=== PATIENT | male | born 1945 | race Caucasian/White ===

== ENCOUNTER 2016-12-31 17:18 | Emergency (ER) | payer MEDICARE, OTHER ==
[~2016-12-31] VITALS: Ht 177.8 cm; Wt 88.5 kg
[~2016-12-31 17:18] MED LIST: DIVA500T2 PO; HALO0.5T4 PO; LEVOSTATIN PO
[2016-12-31 17:27] VITALS: BP 156/74
[2016-12-31] MEDS ORDERED: WATER FOR INJECTION,STERILE 10 ML ONE (19:17)
[2016-12-31] MEDS ORDERED: CEFAZOLIN 1 GM ONE (19:17)
[2016-12-31] MEDS ORDERED: CEFAZOLIN 1 GM VIAL IM ONE (19:30)
== END 2016-12-31 19:50 | disposition home or self-care (01) ==
LOC: ER 17:19
DX: S62.630B Displaced fracture of distal phalanx of right index finger, initial encounter for open fracture (principal); S62.632B Displaced fracture of distal phalanx of right middle finger, initial encounter for open fracture; S62.634B Displaced fracture of distal phalanx of right ring finger, initial encounter for open fracture; S61.210A Laceration without foreign body of right index finger without damage to nail, initial encounter; S61.212A Laceration without foreign body of right middle finger without damage to nail, initial encounter; F31.9 Bipolar disorder, unspecified; Z90.89 Acquired absence of other organs; W27.8XXA Contact with other nonpowered hand tool, initial encounter; Y93.89 Activity, other specified; Y92.89 Other specified places as the place of occurrence of the external cause; Y99.9 Unspecified external cause status
CPT/HCPCS: 73130-TC; A6402; J0690

== ENCOUNTER 2017-01-24 03:54 | Emergency (ER) | payer MEDICARE, OTHER ==
[~2017-01-24] VITALS: Ht 172.7 cm; Wt 79.4 kg
[2017-01-24 03:54] VITALS: BP 132/80
[2017-01-24] MEDS ORDERED: NEOM/POLY B SULF/HC OTIC SUSP 10 ML BOTTLE ONE (04:20)
[2017-01-24] MEDS ORDERED: LIDOCAINE /MPF 1% VIAL 5 ML VIAL ONE (04:26)
[2017-01-24] MEDS ORDERED: CIPROFLOXACIN HCL 250 MG TABLET PO ONE (04:30)
[2017-01-24] MEDS ORDERED: NEOM/POLY B SULF/HC OTIC SUSP 10 ML BOTTLE OT ONE (04:30)
[2017-01-24] MEDS ORDERED: LIDOCAINE 1% INJ 50 ML MDV IJ ONE (04:30)
[2017-01-24] MEDS ORDERED: CIPROFLOXACIN HCL 500 MG TABLET ONE (04:49)
== END 2017-01-24 04:59 | disposition home or self-care (01) ==
LOC: ER 03:57
DX: H60.92 Unspecified otitis externa, left ear (principal); F31.9 Bipolar disorder, unspecified; R79.89 Other specified abnormal findings of blood chemistry
CPT/HCPCS: 82962-TC; A4606; J3490; Z7610

== ENCOUNTER 2017-10-30 10:14 | Emergency (ER) | payer MEDICARE, MEDICAID ==
[~2017-10-30] VITALS: Ht 170.2 cm; Wt 88.5 kg
[2017-10-30 10:17] VITALS: BP 141/86
[2017-10-30] MEDS ORDERED: TDAP [DIPH/PERTUSSIS/TET] 0.5 ML VIAL IM ONE ×2 (10:30→10:31)
== END 2017-10-30 11:41 | disposition home or self-care (01) ==
LOC: ER 10:17
DX: S61.214A Laceration without foreign body of right ring finger without damage to nail, initial encounter (principal); F31.9 Bipolar disorder, unspecified; Z90.89 Acquired absence of other organs; W45.8XXA Other foreign body or object entering through skin, initial encounter; Y93.89 Activity, other specified; Y92.89 Other specified places as the place of occurrence of the external cause; Y99.8 Other external cause status
CPT/HCPCS: 73130-TC; 90715; A4606; A6403; Z7610

== ENCOUNTER 2018-02-05 06:11 | Emergency (ER) | payer MEDICARE, MEDICAID ==
[~2018-02-05] VITALS: Ht 167.6 cm; Wt 89.4 kg
--- NOTE | 2018-02-05 06:11 | NUR ---
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 PRESSURE 03/30. VSS NAD A/OX4. WILL CONTINUE TO MONITOR FOR ANY CHANGES DURING THE SHIFT.
--- NOTE | 2018-02-05 06:32 | NUR ---
ER MD NAVA AT BEDSIDE FOR EVAL
[2018-02-05] MEDS ORDERED: ACETAMINOPHEN ES 500 MG TABLET ONE (06:39)
[2018-02-05] MEDS ORDERED: ACETAMINOPHEN 325 MG TABLET PO ONE (07:00)
--- NOTE | 2018-02-05 07:05 | NUR ---
Received report from REJI Cortes for [facility]. Assumed care at this point in time. Patient is AAOX3. Neuro intact. Bilateral superintendent transmission are strong and equal. No focal deficit noted. Speech is clear and coherent. Face symmetrical.
--- NOTE | 2018-02-05 07:39 | NUR ---
Per Dr Tobias, patient is stable to go home and CT result is ok. Patient discharged to home in stable condition. Written and verbal after care instructions given. Patient verbalizes understanding of instruction.
[2018-02-05 07:43] VITALS: BP 139/84
== END 2018-02-05 07:44 | disposition home or self-care (01) ==
LOC: ER 06:17
DX: S06.0X0A Concussion without loss of consciousness, initial encounter (principal); G51.0 Bell's palsy; F10.10 Alcohol abuse, uncomplicated; F31.9 Bipolar disorder, unspecified; Z90.89 Acquired absence of other organs; W18.39XA Other fall on same level, initial encounter; Y93.89 Activity, other specified; Y92.89 Other specified places as the place of occurrence of the external cause; Y99.8 Other external cause status
CPT/HCPCS: 70450-TC; A4606; Z7610

== ENCOUNTER 2018-06-04 17:06 | Inpatient (IN) | payer MEDICAID, MEDICARE ==
[~2018-06-04] VITALS: Ht 167.6 cm; Wt 86.2 kg
[2018-06-04] MEDS ORDERED: VANCOMYCIN 1 GM in IV D5W 250 ML IV ONE (18:00)
--- NOTE | 2018-06-04 18:00 | NUR ---
PT CAME IN WITH C/O LEFT LEG SWELLING, REDNESS. SEEN BY PA FOR EVAL. VSS. SAFETY AND COMFORT MEASURES PROVIDED. WILL MONITOR.
[2018-06-04 18:18] LABS: BASOPHILS # (AUTO) 0.4 /CMM (0.0-0.2); EOSINOPHILS % (AUTO) 0.5 % (0.0-6.0); HEMATOCRIT 43 % (39-51); HEMOGLOBIN 14.5 g/dL (13.5-17.5); LYMPHOCYTES # (AUTO) 1.8 /CMM (0.8-4.8); LYMPHOCYTES % (AUTO) 13.8 % (20.0-44.0); MEAN CORPUSCULAR HEMOGLOBIN 31 PG (26.0-33.0); MEAN CORPUSCULAR HGB CONC 34 g/dl (31.0-36.0); MEAN CORPUSCULAR VOLUME 91 fL (80-96); MONOCYTES # (AUTO) 1.7 /CMM (0.1-1.30); NEUTROPHILS # (AUTO) 8.9 /CMM (1.8-8.9); NEUTROPHILS % (AUTO) 69.7 % (43.0-81.0); PLATELET COUNT (AUTO) 121 /CMM (150-450); RDW COEFFICIENT OF VARIATION 12.8 (11.5-15.0); RED BLOOD CELL COUNT(AUTO) 4.75 MIL/uL (4.5-6.0); WHITE BLOOD COUNT (AUTO) 12.9 K/uL (4.3-11.0)
[2018-06-04 18:27] LABS: CALCIUM, SERUM 9.8 mg/dL (8.5-10.1); CARBON DIOXIDE 30 mmol/L (21-32); CHLORIDE 101 mmol/L (98-107); CREATININE 1.1 mg/dL (0.6-1.3); GLUCOSE 168 mg/dL (74-106); POTASSIUM 4.4 mmol/L (3.5-5.1); SODIUM SERUM 138 mmol/L (136-145); UREA NITROGEN, BLOOD 31 mg/dL (7-18)
[2018-06-04] MEDS ORDERED: IV NS 0.9% 1,000 ML IV PRN (19:42)
[2018-06-04] MEDS ORDERED: HYDROCODONE/APAP 5/325MG 1 EACH TABLET PO PRN (20:00)
[2018-06-04] MEDS ORDERED: HYDROCODONE/APAP 10/325MG 1 EA TABLET PO PRN (20:00)
[2018-06-04] MEDS ORDERED: Z GUARD REMEDY 2 OZ OINT TP PRN (20:00)
[2018-06-04] MEDS ORDERED: ONDANSETRON HCL/PF 4 MG/2 ML VIAL IVP PRN (20:00)
[2018-06-04] MEDS ORDERED: ACETAMINOPHEN 325 MG TABLET PO PRN (20:00)
[2018-06-04] MEDS ORDERED: MAG HYDROX/AL HYDROX/SIMETH 30 ML UDC PO PRN (20:00)
[2018-06-04] MEDS ORDERED: MAGNESIUM HYDROXIDE 30 ML UDC PO PRN (20:00)
--- NOTE | 2018-06-04 20:20 | NUR ---
REPORT GIVEN TO HILARIO/RN ON BEHALF OF PRIMARY NURSE LYUBOV. TP BE TRANSPORTED TO THE FLOOR. NO S/S OF DISTRESS NOTED AT THIS TIME. RESP EVEN AND UNLABORED.
[2018-06-04 20:35] VITALS: BP 136/74
[2018-06-04] MEDS ORDERED: FEE PK DOSING 1 MIN EA MC ONE (20:56)
[2018-06-04] MEDS: HALOPERIDOL 1 MG TABLET PO SCH ×2 (21:00→21:35)
[2018-06-04] MEDS ORDERED: DIVALPROEX SODIUM 500 MG TABLET.DR PO SCH (21:00)
--- NOTE | 2018-06-04 21:00 | NUR ---
MS RN NOTES PT RECEIVE FROM [facility] ADMIT TO M/S, PT A/OX 4, RESPIRATIONS EVEN AND UNLABORED, NO COMPLAIN OF PAIN. HEAD TO TOE ASSESSMENT IS DONE, NOT IN DISTRESS, OFFLOAD HEELS, KEPT CLEAN AND DRY AND COMFORTABLE. SAFETY MEASURES IN PLACE. WILL CONTINUE TO MONITOR
--- NOTE | 2018-06-04 21:36 | NUR ---
MS MENDOZA UPON ADMINISTERING OF DEPAKOTE MEDICATION PT STATED HE IS TAKING DEPAKOTE 1000 MG QD. WASTE MEDICATION AND WILL CLARIFY HOSPITALIST Addendum: 06/04/18 at 2322 by HILARIO ANGELES RN MEDICATION NOT CUT, CLARIFIED OUTSIDE PHARMACIST ACTIVE DEPAKOTE MEDICATION. NON ADMNISTRATION
--- NOTE | 2018-06-04 21:38 | NUR ---
MS RN NOTES PT REFUSED HALDOL PO UPON GIVING HIM MEDICATION DUE AT 2100 DESPITE EXPLAINING RISKS AND BENEFITS OFFERED 3 TIMES STILL REFUSED. PT A./OX4. HOSPITALIST MADE AWARE
--- NOTE | 2018-06-04 22:23 | NUR ---
MARITZA NUGENT CLARIFIED ORDERS OF DEPAKOTE PER PT HE IS TAKING DEPAKOTE 1000 MG PO QD PER RAFFI OK TO GIVE DEPAKOTE 1000 MG PO QD READ BACK AND VERIFIED ORDERS NOTED AND CARRIED OUT. Addendum: 06/04/18 at 2225 by HILARIO ANGELES RN PER RAFFI D/Marcelo PREVIOUS ORDER OF DEPAKOTE 100 MG NOTED AND CARRIED OUT
[2018-06-04] MEDS ORDERED: DIVALPROEX SODIUM 500 MG TABLET.DR PO ONE (23:00)
[2018-06-05] MEDS ORDERED: VANCOMYCIN 1 GM in IV D5W 250 ML IV SCH (06:00)
--- NOTE | 2018-06-05 06:11 | NUR ---
MS RN CLOSING NOTES PT COMFORTABLY ASLEEP AND EASILY AWAKEN, STABLE, NOT IN DISTRESS. TOLERATING ROOM AIR 99% OFFLOAD HEELS, GOOD SKIN CARE PROVIDED. RESPIRATION EVEN AND UNLABORED. KEPT CLEAN AND DRY AND COMFORTABLE, ALL NURSING CARE RENDERED. NEEDS ATTENDED AND ANTICIPATED. NO COMPLAIN OF PAIN AT THIS TIME. ON LOW BED AT ALL TIMES TO ENSURE SAFETY. SAFE HAZARD FREE ENVIRONMENT PROVIDED. CALL LIGHT WITHIN EASY TO REACH. WILL ENDORSE NEXT SHIFT CONTINUITY OF CARE.
[2018-06-05 06:38] LABS: CALCIUM, SERUM 8.8 mg/dL (8.5-10.1); CARBON DIOXIDE 30 mmol/L (21-32); CHLORIDE 103 mmol/L (98-107); CREATININE 0.9 mg/dL (0.6-1.3); GLUCOSE 118 mg/dL (74-106); MAGNESIUM 1.8 mg/dL (1.8-2.4); PHOSPHORUS 3.9 mg/dL (2.5-4.9); POTASSIUM 4.1 mmol/L (3.5-5.1); SODIUM SERUM 140 mmol/L (136-145); UREA NITROGEN, BLOOD 22 mg/dL (7-18)
[2018-06-05 06:49] LABS: CHOLESTEROL 161 mg/dL (<200); HDL CHOLESTEROL 43 mg/dL (40-60); LDL 100 mg/dL (0-99); THYROID STIMULATING HORMONE 8.518 uIU/mL (0.358-3.74); TRIGLYCERIDES 144 mg/dL (30-150)
[2018-06-05 06:53] LABS: IRON, SERUM 44 ug/dl (50-175); TOTAL IRON BINDING CAPACITY 220 ug/dl (250-450)
[2018-06-05] MEDS ORDERED: PANTOPRAZOLE 40 MG TABLET.DR PO SCH (07:30)
--- NOTE | 2018-06-05 07:30 | NUR ---
MS RN OPENING NOTES RECEIVED PATIENT IN STABLE CONDITION. IN NO APPARENT DISTRESS. BEDSIDE RAILS ARE UPX2. BED IS LOCKED AND LOWERED. CALL LIGHT IS WITHIN REACH. IV LINE IS INTACT AND PATENT. WILL CONTINUE TO MONITOR PATIENT.
[2018-06-05 08:00] VITALS: BP 108/66
[2018-06-05 08:24] LABS: BASOPHILS % (AUTO) 0.2 % (0.0-2.0); EOSINOPHILS % (AUTO) 1.4 % (0.0-6.0); HEMATOCRIT 42 % (39-51); HEMOGLOBIN 13.7 g/dL (13.5-17.5); LYMPHOCYTES % (AUTO) 19.9 % (20.0-44.0); MEAN CORPUSCULAR HEMOGLOBIN 31 PG (26.0-33.0); MEAN CORPUSCULAR HGB CONC 33 g/dl (31.0-36.0); MEAN CORPUSCULAR VOLUME 94 fL (80-96); MONOCYTES # (AUTO) 1.3 /CMM (0.1-1.30); MONOCYTES % (AUTO) 12.8 % (2.0-12.0); NEUTROPHILS # (AUTO) 6.5 /CMM (1.8-8.9); NEUTROPHILS % (AUTO) 65.7 % (43.0-81.0); PLATELET COUNT (AUTO) 145 /CMM (150-450); RDW COEFFICIENT OF VARIATION 13.7 (11.5-15.0); RED BLOOD CELL COUNT(AUTO) 4.46 MIL/uL (4.5-6.0); WHITE BLOOD COUNT (AUTO) 9.9 K/uL (4.3-11.0)
[2018-06-05] MEDS: HALOPERIDOL 1 MG TABLET PO SCH (08:24)
[2018-06-05] MEDS ORDERED: LEVOSTATIN PO SCH (09:00)
--- NOTE | 2018-06-05 13:52 | NUR ---
PATIENT LEFT AMA. PATIENT SIGNED AMA FORM. IV LINE WAS REMOVED. EXPLAINED TO PATIENT RISKS AND BENEFITS OF LEAVING AMA. PATIENT CONTINUES TO INSIST ON LEAVING. OFFERED PATIENT TO SPEAK TO A COPPER RO[employer] HANDLER PRINTING. COPPER ROLLER HANDLER PRINTING CAME TO TALK TO THE PATIENT. PATIENT REFUSED TO RECEIVE PAPERWORK. CALLED PATIENTS FRIEND DANIE PATEL: [phone]. FRIEND WILL COME BUSINESS OBJECTS ARCHITECT PATIENT. PATIENT ESCORTED OUT OF THE FACILITY VIA WHEELCHAIR BY PIPO. Addendum: 06/05/18 at 1453 by JESICA PAYNE RN ID BAND WAS REMOVED
[2018-06-05] MEDS ORDERED: SIMVASTATIN 10 MG TABLET PO SCH (22:00)
[2018-06-05] MEDS ORDERED: DIVALPROEX SODIUM 500 MG TABLET.DR PO SCH (22:00)
== END 2018-06-05 13:52 | disposition left against medical advice (07) | DRG 571 ==
LOC: ER 17:14 → MEDSG2 20:23
PROVIDERS: ADMIT Registered Nurse; ATTEND Registered Nurse
PROC: 0JBR0ZZ Excision of Left Foot Subcutaneous Tissue and Fascia, Open Approach (ICD-10-PCS; principal; 2018-06-05)
DX: L03.116 Cellulitis of left lower limb (principal); K57.92 Diverticulitis of intestine, part unspecified, without perforation or abscess without bleeding; F31.9 Bipolar disorder, unspecified; Z98.890 Other specified postprocedural states; Z79.899 Other long term (current) drug therapy; J44.9 Chronic obstructive pulmonary disease, unspecified; M62.838 Other muscle spasm; D72.829 Elevated white blood cell count, unspecified; D69.6 Thrombocytopenia, unspecified; E86.0 Dehydration; E11.65 Type 2 diabetes mellitus with hyperglycemia; E66.9 Obesity, unspecified; F41.9 Anxiety disorder, unspecified; Z68.30 Body mass index [BMI] 30.0-30.9, adult; T31.0 Burns involving less than 10% of body surface; B96.89 Other specified bacterial agents as the cause of diseases classified elsewhere; T24.232D Burn of second degree of left lower leg, subsequent encounter; T25.212D Burn of second degree of left ankle, subsequent encounter
CPT/HCPCS: 36415; 80048-TC; 80061-TC; 83540-TC; 83735-TC; 84100-TC; 84443-TC; 85025-TC; 87070-TC; 87081-TC; 93971-TC; A4606; A6402; A6403; J3370; J7030; J7060; Z7610

== ENCOUNTER 2018-06-07 18:47 | Emergency (ER) | payer MEDICARE, OTHER ==
--- NOTE | 2018-06-07 19:38 | NUR ---
pt called for triage. per ER admin, pt left. pt lwbs.
== END 2018-06-07 19:39 | disposition left against medical advice (07) ==
LOC: ER 18:52
DX: Z53.21 Procedure and treatment not carried out due to patient leaving prior to being seen by health care provider (principal)

== ENCOUNTER 2018-06-07 23:53 | Emergency (ER) | payer MEDICARE, MEDICAID ==
[~2018-06-07] VITALS: Ht 167.6 cm; Wt 89.4 kg
[2018-06-08 00:02] VITALS: BP 148/81
== END 2018-06-08 00:51 | disposition home or self-care (01) ==
LOC: ER 23:55
DX: T24.6 Corrosion of second degree of lower limb, except ankle and foot (principal); E11.9 Type 2 diabetes mellitus without complications; F31.9 Bipolar disorder, unspecified; F10.10 Alcohol abuse, uncomplicated; M62.838 Other muscle spasm; Y90.9 Presence of alcohol in blood, level not specified; Z90.89 Acquired absence of other organs
CPT/HCPCS: A4606; Z7502; Z7610

== ENCOUNTER 2018-06-16 03:12 | Emergency (ER) | payer MEDICARE, MEDICAID ==
--- NOTE | 2018-06-16 03:22 | NUR ---
PT NOT IN LOBBY WHEN CALLED FOR TRIAGE
--- NOTE | 2018-06-16 03:32 | NUR ---
CALLED AGAIN. INFORMED "PT LEFT"
== END 2018-06-16 03:33 | disposition left against medical advice (07) ==
LOC: ER 03:12
DX: Z53.21 Procedure and treatment not carried out due to patient leaving prior to being seen by health care provider (principal)

== ENCOUNTER 2019-05-04 20:47 | Emergency (ER) | payer MEDICARE, MEDICAID ==
[~2019-05-04] VITALS: Ht 170.2 cm; Wt 83.9 kg
[~2019-05-04 20:47] MED LIST changes: +HALO0.5T2 PO; -HALO0.5T4 PO
[2019-05-04 21:26] VITALS: BP 139/88
--- NOTE | 2019-05-04 22:18 | NUR ---
Patient discharged to home in stable condition. Written and verbal after care instructions given. Patient verbalizes understanding of instruction. Pt ambulatory with a steady gait
== END 2019-05-04 22:20 | disposition home or self-care (01) ==
LOC: ER 20:55
DX: H60.92 Unspecified otitis externa, left ear (principal); F31.9 Bipolar disorder, unspecified; G51.0 Bell's palsy; Z90.89 Acquired absence of other organs; Z79.899 Other long term (current) drug therapy

== ENCOUNTER 2022-03-30 03:38 | Emergency (ER) | payer MEDICAID, MEDICARE ==
[~2022-03-30] VITALS: Ht 170.2 cm; Wt 85.3 kg
[2022-03-30 03:47] VITALS: BP 140/60
--- NOTE | 2022-03-30 03:53 | NUR ---
Patient discharged to home in stable condition. Written and verbal after care instructions given. Patient verbalizes understanding of instruction.
== END 2022-03-30 04:29 | disposition home or self-care (01) ==
LOC: ER 03:43
DX: R21 Rash and other nonspecific skin eruption (principal); F31.9 Bipolar disorder, unspecified; Z87.19 Personal history of other diseases of the digestive system; Z90.89 Acquired absence of other organs

== ENCOUNTER 2024-07-14 11:46 | Emergency (ER) | payer MEDICARE ==
[~2024-07-14] VITALS: Ht 170.2 cm; Wt 83.0 kg
[2024-07-14] MEDS ORDERED: TDAP [DIPH/PERTUSSIS/TET] 0.5 ML VIAL IM ONE (13:01)
[2024-07-14] MEDS: TDAP [DIPH/PERTUSSIS/TET] 0.5 ML VIAL IM ONE (13:06)
[2024-07-14 14:20] VITALS: BP 145/80; TEMP 97.7; O2SAT 98
== END 2024-07-14 14:21 | disposition home or self-care (01) ==
LOC: ER 11:50
DX: S01.81XA Laceration without foreign body of other part of head, initial encounter (principal); F31.9 Bipolar disorder, unspecified; Z86.69 Personal history of other diseases of the nervous system and sense organs; Z87.39 Personal history of other diseases of the musculoskeletal system and connective tissue; Z90.49 Acquired absence of other specified parts of digestive tract; W01.0XXA Fall on same level from slipping, tripping and stumbling without subsequent striking against object, initial encounter; Y93.89 Activity, other specified; Y92.89 Other specified places as the place of occurrence of the external cause; Y99.8 Other external cause status
CPT/HCPCS: 70450-TC; 70486-TC; 72125-TC; 90715

== ENCOUNTER 2024-09-03 09:45 | Emergency (ER) | payer MEDICARE ==
[~2024-09-03] VITALS: Ht 182.9 cm; Wt 75.3 kg
[2024-09-03] MEDS ORDERED: KETOROLAC TROMETHAMINE 15 MG/ML VIAL ONE (10:15)
[2024-09-03] MEDS: IV NS 0.9% 1,000 ML BAG IV ONE (10:24)
[2024-09-03] MEDS: KETOROLAC TROMETHAMINE 15 MG/ML VIAL IV ONE (10:25)
[2024-09-03] MEDS ORDERED: METOCLOPRAMIDE HCL 10 MG/2 ML VIAL ONE (10:29)
[2024-09-03 10:32] LABS: BASOPHILS # (AUTO) 0.1 K/uL (0.0-0.2); BASOPHILS % (AUTO) 0.7 % (0.0-2.0); EOSINOPHILS # (AUTO) 0.2 K/uL (0.0-0.7); EOSINOPHILS % (AUTO) 2.2 % (0.0-6.0); HEMATOCRIT 41 % (39-51); HEMOGLOBIN 13.9 g/dL (13.5-17.5); LYMPHOCYTES # (AUTO) 1.3 K/uL (0.8-4.8); LYMPHOCYTES % (AUTO) 14.7 % (20.0-44.0); MEAN CORPUSCULAR HEMOGLOBIN 30 PG (26.0-33.0); MEAN CORPUSCULAR HGB CONC 34 g/dl (31.0-36.0); MEAN CORPUSCULAR VOLUME 88 fL (80-96); MONOCYTES % (AUTO) 22.4 % (2.0-12.0); NEUTROPHILS # (AUTO) 5.3 K/uL (1.8-8.9); PLATELET COUNT (AUTO) 154 K/uL (150-450); RED BLOOD CELL COUNT(AUTO) 4.64 MIL/uL (4.5-6.0); WHITE BLOOD COUNT (AUTO) 8.8 K/uL (4.3-11.0)
[2024-09-03] MEDS: METOCLOPRAMIDE HCL 10 MG/2 ML VIAL IV ONE (10:32)
[2024-09-03 10:51] LABS: VALPROIC ACID < 3 ug/mL (50-100)
[2024-09-03 10:54] LABS: CALCIUM, SERUM 9.5 mg/dL (8.5-10.1); CARBON DIOXIDE 31 mmol/L (21-32); CHLORIDE 96 mmol/L (98-107); CREATININE 1.1 mg/dL (0.6-1.3); GLUCOSE 208 mg/dL (74-106); POTASSIUM 4.2 mmol/L (3.5-5.1); SODIUM SERUM 134 mmol/L (136-145); UREA NITROGEN, BLOOD 22 mg/dL (7-18)
[2024-09-03 11:04] LABS: BAND % (MANUAL) 1 % (0.0-5.0); NEUTROPHILS % (MANUAL) 57 (42-76)
[2024-09-03 11:05] LABS: EOSINOPHILS % (MANUAL) 1 % (0-4); LYMPHOCYTES % (MANUAL) 15 % (16-48); METAMYELOCYTES % 1 % (0-0); MONOCYTES % (MANUAL) 20 % (0-11.0); MYELOCYTES % 1 % (0-0); PLATELET ESTIMATE ADEQUATE; REACTIVE LYMPHOCYTES 4 % (0-0)
[2024-09-03] MEDS ORDERED: MORPHINE SULFATE INJ 2 MG/ML DISP.SYRIN ONE (11:33)
[2024-09-03] MEDS: MORPHINE SULFATE INJ 2 MG/ML DISP.SYRIN IV ONE (11:36)
[2024-09-03] MEDS ORDERED: DIVA500T2 PO (11:42)
[2024-09-03] MEDS ORDERED: DIVALPROEX SODIUM 500 MG TABLET.DR PO ONE (12:46)
[2024-09-03] MEDS ORDERED: VALPROIC ACID 250 MG/5 ML UDC ONE (12:47)
[2024-09-03] MEDS: VALPROIC ACID 250 MG/5 ML UDC PO ONE (12:47)
[2024-09-03 12:52] VITALS: BP 124/72; TEMP 98; O2SAT 98
== END 2024-09-03 12:53 | disposition home or self-care (01) ==
LOC: ER 09:45
DX: R51.9 Headache, unspecified (principal); F31.9 Bipolar disorder, unspecified; Z90.49 Acquired absence of other specified parts of digestive tract; Z86.69 Personal history of other diseases of the nervous system and sense organs; Z87.19 Personal history of other diseases of the digestive system; Z87.39 Personal history of other diseases of the musculoskeletal system and connective tissue
CPT/HCPCS: 99285; 96374; 96375; 96361; 85025; 80048; 36415; 80164; 85007; J2765; J7030 ×2; J2270; J1885

== ENCOUNTER 2024-09-24 10:49 | Emergency (ER) | payer MEDICARE ==
[~2024-09-24] VITALS: Ht 170.2 cm; Wt 83.9 kg
[2024-09-24] MEDS ORDERED: DIVA-78 PO (11:16)
[2024-09-24] MEDS ORDERED: ACETAMINOPHEN ES 500 MG TABLET ONE (11:25)
[2024-09-24] MEDS: ACETAMINOPHEN ES 500 MG TABLET PO ONE (11:27)
[2024-09-24 11:29] VITALS: BP 128/72; TEMP 98; O2SAT 99
== END 2024-09-24 11:34 | disposition home or self-care (01) ==
LOC: ER 10:49
DX: R51.9 Headache, unspecified (principal); F31.9 Bipolar disorder, unspecified; Z76.0 Encounter for issue of repeat prescription; Z79.899 Other long term (current) drug therapy; Z90.49 Acquired absence of other specified parts of digestive tract; Z86.69 Personal history of other diseases of the nervous system and sense organs; Z87.19 Personal history of other diseases of the digestive system; Z87.39 Personal history of other diseases of the musculoskeletal system and connective tissue

== ENCOUNTER 2024-12-08 09:05 | Emergency (ER) | payer MEDICARE ==
[~2024-12-08] VITALS: Ht 170.2 cm; Wt 78.9 kg
[~2024-12-08 09:05] MED LIST changes: +DIVA-78 PO
[2024-12-08] MEDS: IV NS 0.9% 1,000 ML BAG IV ONE (09:40)
[2024-12-08 10:13] LABS: BASOPHILS # (AUTO) 0.1 K/uL (0.0-0.2); BASOPHILS % (AUTO) 0.7 % (0.0-2.0); EOSINOPHILS # (AUTO) 0.1 K/uL (0.0-0.7); EOSINOPHILS % (AUTO) 0.5 % (0.0-6.0); HEMATOCRIT 42 % (39-51); HEMOGLOBIN 14.2 g/dL (13.5-17.5); LYMPHOCYTES # (AUTO) 1.4 K/uL (0.8-4.8); LYMPHOCYTES % (AUTO) 10.1 % (20.0-44.0); MEAN CORPUSCULAR HEMOGLOBIN 29 PG (26.0-33.0); MEAN CORPUSCULAR HGB CONC 34 g/dl (31.0-36.0); MEAN CORPUSCULAR VOLUME 88 fL (80-96); MONOCYTES # (AUTO) 1.5 K/uL (0.1-1.30); MONOCYTES % (AUTO) 11.4 % (2.0-12.0); NEUTROPHILS # (AUTO) 10.5 K/uL (1.8-8.9); NEUTROPHILS % (AUTO) 77.3 % (43.0-81.0); PLATELET COUNT (AUTO) 234 K/uL (150-450); RED BLOOD CELL COUNT(AUTO) 4.83 MIL/uL (4.5-6.0); RED CELL DISTRIBUTION WIDTH 14.1 % (11.5-15.0); WHITE BLOOD COUNT (AUTO) 13.6 K/uL (4.3-11.0)
[2024-12-08 10:14] LABS: CARBON DIOXIDE 29 mmol/L (21-32); CHLORIDE 99 mmol/L (98-107); GLUCOSE 282 mg/dL (74-106); POTASSIUM 4.2 mmol/L (3.5-5.1); SODIUM SERUM 139 mmol/L (136-145); UREA NITROGEN, BLOOD 24 mg/dL (7-18)
[2024-12-08] MEDS ORDERED: DIVA-78 PO (11:06)
[2024-12-08] MEDS ORDERED: ACET325T53 PO (11:06)
[2024-12-08 14:07] VITALS: BP 127/68; TEMP 98.5; O2SAT 95
[2024-12-08 15:27] LABS: APPEARANCE,URINE CLEAR (CLEAR); BILIRUBIN,URINE NEGATIVE (NEGATIVE); BLOOD, URINE NEGATIVE Ery/uL (NEGATIVE); COLOR,URINE YELLOW (YELLOW); KETONES,URINE TRACE mg/dL (NEGATIVE); LEUKOCYTE ESTERASE ,URINE NEGATIVE (NEGATIVE); NITRITE, URINE NEGATIVE (NEGATIVE); PH,URINE 6.5 (5.0-8.0); PROTEIN,URINE NEGATIVE (NEGATIVE); UGLUCOSE 3+ mg/dL (NEGATIVE); UROBILINOGEN,URINE 0.2 EU/dL (0.2)
[2024-12-08 16:07] LABS: ADD URINE CULTURE NO; BACTERIA,URINE None seen /HPF (None Seen); RBC,URINE 0-2 /HPF (0-2); SQUAMOUS EPITHELIAL CELL,UR 0-2 /HPF (None Seen); WBC,URINE 0-2 /HPF (0-3)
== END 2024-12-08 13:58 | disposition left against medical advice (07) ==
LOC: ER 09:11 → UNDOADMIN 11:56 → MEDSG1 11:56 → ER 13:58 → UNDODISIN 14:49
DX: R53.1 Weakness (principal); R62.7 Adult failure to thrive; R41.82 Altered mental status, unspecified; R07.9 Chest pain, unspecified; M25.511 Pain in right shoulder; K57.92 Diverticulitis of intestine, part unspecified, without perforation or abscess without bleeding; Z90.49 Acquired absence of other specified parts of digestive tract; Z79.899 Other long term (current) drug therapy; Z68.27 Body mass index [BMI] 27.0-27.9, adult
CPT/HCPCS: 99285; 96360; 70450; 71045; 93005; 73030; 85025; 80048; 87086; 81001; 36415; 84484 ×2; J7030; G0378

== ENCOUNTER 2025-01-05 07:53 | Inpatient (IN) | payer MEDICARE ==
[~2025-01-05] VITALS: Ht 170.2 cm; Wt 72.6 kg
[~2025-01-05 07:53] MED LIST changes: +ACET325T53 PO; -DIVA500T2 PO; -HALO0.5T2 PO; -LEVOSTATIN PO
[2025-01-05] MEDS: IV NS 0.9% 1,000 ML BAG IV ONE (08:15)
[2025-01-05 08:34] LABS: BASOPHILS # (AUTO) 0.1 K/uL (0.0-0.2); EOSINOPHILS # (AUTO) 0.1 K/uL (0.0-0.7); EOSINOPHILS % (AUTO) 0.8 % (0.0-6.0); HEMATOCRIT 42 % (39-51); HEMOGLOBIN 13.9 g/dL (13.5-17.5); LYMPHOCYTES # (AUTO) 1.7 K/uL (0.8-4.8); MEAN CORPUSCULAR HEMOGLOBIN 29 PG (26.0-33.0); MEAN CORPUSCULAR HGB CONC 33 g/dl (31.0-36.0); MEAN CORPUSCULAR VOLUME 87 fL (80-96); MONOCYTES # (AUTO) 0.9 K/uL (0.1-1.30); NEUTROPHILS # (AUTO) 8.3 K/uL (1.8-8.9); NEUTROPHILS % (AUTO) 75.2 % (43.0-81.0); PLATELET COUNT (AUTO) 241 K/uL (150-450); RED BLOOD CELL COUNT(AUTO) 4.82 MIL/uL (4.5-6.0); RED CELL DISTRIBUTION WIDTH 14.9 % (11.5-15.0); WHITE BLOOD COUNT (AUTO) 11.1 K/uL (4.3-11.0)
[2025-01-05 08:40] LABS: CALCIUM, SERUM 10.4 mg/dL (8.5-10.1); CARBON DIOXIDE 28 mmol/L (21-32); CHLORIDE 100 mmol/L (98-107); CREATININE 0.8 mg/dL (0.6-1.3); GLUCOSE 243 mg/dL (74-106); POTASSIUM 4.3 mmol/L (3.5-5.1); SODIUM SERUM 137 mmol/L (136-145); UREA NITROGEN, BLOOD 25 mg/dL (7-18)
[2025-01-05 08:42] LABS: ALCOHOL, BLOOD < 3 mg/dL (0-10)
[2025-01-05] MEDS ORDERED: DEXTROSE 50%-WATER 50 ML DISP.SYRIN IV PRN (10:00)
[2025-01-05] MEDS ORDERED: hydrALAZINE HCL IV 20 MG VIAL IV PRN (10:00)
[2025-01-05] MEDS ORDERED: ONDANSETRON HCL/PF 4 MG/2 ML VIAL IVP PRN (10:00)
[2025-01-05] MEDS ORDERED: MORPHINE SULFATE INJ 2 MG/ML DISP.SYRIN IV PRN (10:00)
[2025-01-05] MEDS ORDERED: ACETAMINOPHEN 325 MG TABLET PO PRN (10:00)
[2025-01-05 10:32] LABS: LYMPHOCYTES % (MANUAL) 16 % (16-48); MONOCYTES % (MANUAL) 10 % (0-11.0); NEUTROPHILS % (MANUAL) 74 (42-76); PLATELET ESTIMATE ADEQUATE
[2025-01-05 10:34] LABS: STOMATOCYTES FEW
[2025-01-05 10:57] LABS: CHOLESTEROL 211 mg/dL (<200); HDL CHOLESTEROL 46 mg/dL (40-60); LDL 135 mg/dL (0-99); TRIGLYCERIDES 138 mg/dL (30-150)
[2025-01-05 11:15] LABS: VALPROIC ACID 11 ug/mL (50-100)
[2025-01-05 11:42] VITALS: BP 140/79; TEMP 97.2; O2SAT 98
[2025-01-05] MEDS: INSULIN REGULAR, HUMAN 100 UNIT/ML 3 ML VIAL SQ PRN (12:24)
[2025-01-05] MEDS: BLOOD SUGAR DIAGNOSTIC 1 EACH STRIP VI SCH (12:57)
[2025-01-05 16:00] VITALS: BP 135/66; TEMP 97.5; O2SAT 98
[2025-01-05] MEDS: DOCUSATE SODIUM LIQ 100 MG/10 ML UDC PO SCH (17:00)
[2025-01-05] MEDS: DIVALPROEX SODIUM 500 MG TABLET.DR PO SCH (22:07)
[2025-01-05] MEDS: HEPARIN SODIUM, PORCINE 5000 UNITS/1 ML VIAL SQ SCH (22:11)
[2025-01-06] MEDS: POLYETHYLENE GLYCOL 3350 17 GM POWD.PACK PO SCH (10:35)
[2025-01-06] MEDS: *INSULIN REGULAR(HUMULIN R)HUM 100 UNIT/ML VIAL SQ PRN (13:45)
[2025-01-06 16:47] VITALS: BP 103/78; TEMP 97.6; O2SAT 98
[2025-01-07] VITALS: BP 103/78; TEMP 97.6; O2SAT 98
[2025-01-07 08:00] VITALS: BP 122/70; TEMP 98.1; O2SAT 98
== END 2025-01-07 14:04 | disposition left against medical advice (07) | DRG 948 ==
LOC: ER 07:57 → MEDSG1 10:01
PROVIDERS: ADMIT Internal Medicine; ATTEND Internal Medicine
DX: R53.1 Weakness (principal); R62.7 Adult failure to thrive; E78.5 Hyperlipidemia, unspecified; I10 Essential (primary) hypertension; R29.6 Repeated falls; Z87.19 Personal history of other diseases of the digestive system; G51.0 Bell's palsy; Z79.899 Other long term (current) drug therapy; G89.29 Other chronic pain; F32.A Depression, unspecified; Z90.49 Acquired absence of other specified parts of digestive tract; H40.9 Unspecified glaucoma; E11.9 Type 2 diabetes mellitus without complications
CPT/HCPCS: 36415; 70450-TC; 71045-TC; 80048-TC; 80061-TC; 80164-TC; 82962-TC; 84484-TC; 85025-TC; 97116-TC; 97530-TC; 97535-TC; G0378; G0480; J1644; J1815; J7030

== ENCOUNTER 2025-03-19 02:05 | Emergency (ER) | payer MEDICARE ==
[~2025-03-19] VITALS: Ht 170.2 cm; Wt 70.3 kg
[2025-03-19 03:42] VITALS: BP 113/17; TEMP 98.2; O2SAT 96
[2025-03-19] MEDS ORDERED: LATA2.5D15 EACHEYE (04:58)
== END 2025-03-19 05:14 | disposition home or self-care (01) ==
LOC: ER 02:10
DX: H40.89 Other specified glaucoma (principal); Z76.0 Encounter for issue of repeat prescription; F31.9 Bipolar disorder, unspecified; G89.29 Other chronic pain; Z90.49 Acquired absence of other specified parts of digestive tract

== ENCOUNTER 2025-06-07 10:32 | Inpatient (IN) | payer MEDICARE ==
[~2025-06-07] VITALS: Ht 350.5 cm; Wt 72.6 kg
[~2025-06-07 10:32] MED LIST changes: +DIVA500T4 PO; +LATA2.5D15 EACHEYE
[2025-06-07 11:21] LABS: PLATELET COUNT (AUTO) 240 K/uL (150-450); RED BLOOD CELL COUNT(AUTO) 4.47 MIL/uL (4.5-6.0); RED CELL DISTRIBUTION WIDTH 15.0 % (11.5-15.0); WHITE BLOOD COUNT (AUTO) 9.3 K/uL (4.3-11.0)
[2025-06-07 11:36] LABS: CALCIUM, SERUM 10.0 mg/dL (8.5-10.1); CREATININE 1.1 mg/dL (0.6-1.3); SODIUM SERUM 138 mmol/L (136-145); UREA NITROGEN, BLOOD 19 mg/dL (7-18)
[2025-06-07 11:42] LABS: ASPARTATE AMINOTRANSFERASE 7 U/L (15-37); TOTAL PROTEIN, SERUM 7.9 g/dL (6.4-8.2)
[2025-06-07 11:47] LABS: ALCOHOL, BLOOD < 3 mg/dL (0-10); NT-PRO BNP 247 pg/mL (0-125)
[2025-06-07] MEDS ORDERED: LATA7.5D EACHEYE (11:51)
[2025-06-07] MEDS ORDERED: ONDANSETRON HCL/PF 4 MG/2 ML VIAL IVP PRN (12:30)
[2025-06-07] MEDS ORDERED: Z GUARD REMEDY 4 OZ OINT TP PRN (12:30)
[2025-06-07] MEDS ORDERED: HYDROCODONE/APAP 5/325MG TABLET PO PRN (12:30)
[2025-06-07] MEDS ORDERED: DEXTROSE 50%-WATER 50 ML DISP.SYRIN IV PRN (12:30)
[2025-06-07] MEDS ORDERED: MAG HYDROX/AL HYDROX/SIMETH 30 ML UDC PO PRN (12:30)
[2025-06-07] MEDS ORDERED: MAGNESIUM HYDROXIDE 30 ML UDC PO PRN (12:30)
[2025-06-07] MEDS ORDERED: ZOLPIDEM TARTRATE 5 MG TABLET PO PRN (12:30)
[2025-06-07 15:54] VITALS: BP 114/80; TEMP 98.2; O2SAT 97
[2025-06-07] MEDS: IV NS 0.9% 1,000 ML IV PRN (17:09)
[2025-06-07] MEDS: BLOOD SUGAR DIAGNOSTIC 1 EACH STRIP IN SCH (17:42)
[2025-06-07] MEDS: INSULIN REGULAR, HUMAN 100 UNIT/ML 3 ML VIAL SQ PRN (21:23)
[2025-06-07] MEDS: LATANOPROST EYE DROP 0.005% 2.5 ML BOTTLE OP SCH (21:24)
[2025-06-07] MEDS: ACETAMINOPHEN 325 MG TABLET PO PRN (22:44)
[2025-06-08 06:56] LABS: PLATELET COUNT (AUTO) 209 K/uL (150-450); RED BLOOD CELL COUNT(AUTO) 4.05 MIL/uL (4.5-6.0); RED CELL DISTRIBUTION WIDTH 14.9 % (11.5-15.0); WHITE BLOOD COUNT (AUTO) 7.8 K/uL (4.3-11.0)
[2025-06-08 07:24] LABS: CALCIUM, SERUM 9.0 mg/dL (8.5-10.1); CREATININE 0.8 mg/dL (0.6-1.3); PHOSPHORUS 3.0 mg/dL (2.5-4.9); SODIUM SERUM 140.0 mmol/L (136-145); UREA NITROGEN, BLOOD 15.0 mg/dL (7-18)
[2025-06-08] MEDS: PANTOPRAZOLE 40 MG TABLET.DR PO SCH (07:34)
[2025-06-08 08:15] VITALS: BP 122/86; TEMP 97.7; O2SAT 97
[2025-06-08] MEDS: DIVALPROEX SODIUM 500 MG TABLET.DR PO SCH (08:15)
[2025-06-08 15:54] VITALS: BP 126/75; TEMP 97.5; O2SAT 95
[2025-06-08 20:24] VITALS: BP 124/74; TEMP 98.4; O2SAT 94
[2025-06-08] MEDS: INSULIN GLARGINE, 100 UNIT/ML CARTRIDGE SQ SCH (21:33)
[2025-06-09 07:06] LABS: VALPROIC ACID 22 ug/mL (50-100)
[2025-06-09 07:09] LABS: SERUM AMMONIA < 10 umol/L (11-32)
[2025-06-09 08:00] VITALS: BP 114/83; TEMP 98.6; O2SAT 97
[2025-06-09 10:27] VITALS: BP 133/64; TEMP 98.8; O2SAT 97
== END 2025-06-09 16:14 | disposition home health service (06) | DRG 641 ==
LOC: ER 10:42 → MED 13:54
PROVIDERS: ADMIT Nurse Practitioner Acute Care; ATTEND Nurse Practitioner Acute Care
DX: R62.7 Adult failure to thrive (principal); F31.9 Bipolar disorder, unspecified; H40.9 Unspecified glaucoma; E11.65 Type 2 diabetes mellitus with hyperglycemia; E78.5 Hyperlipidemia, unspecified; I10 Essential (primary) hypertension; Z87.19 Personal history of other diseases of the digestive system; K59.00 Constipation, unspecified; F41.9 Anxiety disorder, unspecified; G89.29 Other chronic pain; Z91.199 Patient's noncompliance with other medical treatment and regimen due to unspecified reason; Z90.49 Acquired absence of other specified parts of digestive tract; Z79.899 Other long term (current) drug therapy
CPT/HCPCS: 36415; 71045-TC; 80048-TC; 80076-TC; 80164-TC; 82140-TC; 82962-TC; 83735-TC; 83880; 84100-TC; 84443-TC; 84484-TC; 85025-TC; 97116-TC; 97530-TC; 97535-TC; A4223; G0378; G0480; J1815; J7030